=== PATIENT | female | born 1940 | race African-American/Black ===

== ENCOUNTER 2019-08-05 12:25 | Inpatient (IN) | payer OTHER, BC ==
[~2019-08-05] VITALS: Ht 162.6 cm; Wt 97.1 kg
[2019-08-05 12:27] VITALS: BP 135/68
[2019-08-05 12:42] LABS: BE(vivo) 4.2 mmol/L (-2 to +3); HCO3 29.5 mmol/L (22.0-26.0); PCO2 46.9 mmHg (35.0-45.0); PO2 64.3 mmHg (80.0-100.0); pH 7.417 (7.360-7.450); sO2 92.7 % (92.0-98.0)
[2019-08-05 12:42] LABS: ABSOLUTE NEUTROPHILS 2.8 thou/uL (1.4-8.2); BASOPHILS 0.7 % (0.0-2.0); EOSINOPHILS 6.9 % (0.0-3.0); HEMATOCRIT 38.8 % (37.0-47.0); HEMOGLOBIN 12.1 gm/dL (12.0-15.0); LYMPHOCYTES 45.4 % (24.0-44.0); MCH 27.4 pg (26.0-34.0); MCHC 31.3 g/dL (28.0-37.0); MCV 87.6 fL (80.0-100.0); MONOCYTES 8.7 % (1.0-8.0); PLATELET COUNT 201 thou/uL (150-400); POLYS 38.3 % (36.0-66.0); RBC 4.43 mil/uL (4.20-5.00); RDW 14.7 % (10.5-14.5); WBC 7.3 thou/uL (4.0-11.0)
[2019-08-05 12:51] LABS: ANION GAP 6 mmol/L (7-16); BUN 9 mg/dL (7-18); CALCIUM 9.2 mg/dL (8.5-10.1); CHLORIDE 103 mmol/L (98-107); CO2 33 mmol/L (21-32); CREATININE 0.7 mg/dL (0.6-1.0); GLUCOSE 97 mg/dL (74-106); POTASSIUM 3.9 mmol/L (3.5-5.1); SODIUM 142 mmol/L (136-145)
[2019-08-05 12:59] LABS: TROPONIN-I <0.06 ng/mL (<0.06)
--- NOTE | 2019-08-05 13:15 | NUR ---
TALKED WITH PHARMACY WHO INFORMED ME THAT LEVAQUIN AND MAG SULFATE ARE NOT COMPATIBLE IN THE SAME IV TUBING.
[2019-08-05 13:24] VITALS: BP 124/57
[2019-08-05] MEDS ORDERED: NORVASC 2.5 MG2.5 M1 PO (16:30)
[2019-08-05] MEDS ORDERED: ROSUVASTATIN CA10 MG PO (16:31)
[2019-08-05] MEDS ORDERED: FLEXERIL PO (16:31)
[2019-08-05] MEDS ORDERED: ULTRAM50 MG PO (16:32)
[2019-08-05 17:16] VITALS: BP 132/65
[2019-08-05 20:17] VITALS: BP 128/70
[2019-08-06] MEDS ORDERED: SYMBICORT160 MCG/4. INH (00:13)
[2019-08-06] MEDS ORDERED: VENTOLIN HFA 1818 GM INH (00:15)
[2019-08-06] MEDS ORDERED: PROMETHAZINE-C473 ML PO (00:17)
[2019-08-06 01:19] VITALS: BP 130/69
[2019-08-06 04:29] LABS: CALCIUM 9.2 mg/dL (8.5-10.1); CREATININE 0.7 mg/dL (0.6-1.0); MAGNESIUM 2.5 mg/dL (1.8-2.4); POTASSIUM 3.9 mmol/L (3.5-5.1)
[2019-08-06 04:34] LABS: HEMATOCRIT 36.9 % (37.0-47.0); HEMOGLOBIN 11.6 gm/dL (12.0-15.0); MCH 27.3 pg (26.0-34.0); MCHC 31.5 g/dL (28.0-37.0); MCV 86.5 fL (80.0-100.0); RBC 4.26 mil/uL (4.20-5.00); RDW 14.3 % (10.5-14.5); WBC 3.7 thou/uL (4.0-11.0)
[2019-08-06 04:58] VITALS: BP 109/56
--- NOTE | 2019-08-06 07:30 | NUR ---
ASSESSMENTS CHARTED, MEDS GIVEN CHARTED. PATIENT RESTING IN BED DURING SHIFT ON 3 LITERS NASAL CANNULA. UP TO BSC WITH STANDBY ASSIST. REQUESTED COUGH MEDICINE. SPOKE WITH DC MILTON FOR ORDER. PLAN OF CARE IS TO CONTINUE STEROID THERAPY, BREATHING TREATMENTS NEEDED. FALL PRECAUTIONS IN PLACE.
[2019-08-06 08:17] VITALS: BP 131/69
[2019-08-06 09:31] LABS: BE(vivo) 3.9 mmol/L (-2 to +3); PCO2 40.2 mmHg (35.0-45.0); PO2 80.4 mmHg (80.0-100.0); pH 7.461 (7.360-7.450); sO2 96.4 % (92.0-98.0)
[2019-08-06 12:49] VITALS: BP 126/69
--- NOTE | 2019-08-06 15:03 | NUR ---
Nutrition: pt admitted with COPD exacerbation and hyoxia, respiratory distress. Seen due to high risk screen for poor intake and weight loss. Pt is DNR and does not desire intubation. PO intake is fair and has been < 75% of usual recently due to breathing issues. Reports 10# or 4% weight loss within the past 6 months, not significant. Does try to eat smaller more frequent meals, uses ensure daily. PO intake today reported as 50-100%. On steroid. Does not meet malnutrition criteria. Able to order meals. Will add ensure to lunch trays and encourage using as pm snacks. Place as low risk with interventions in place.
--- NOTE | 2019-08-06 15:44 | NUR ---
ASSUMED CARE AT SHIFT CHANGE, ALERT AND ORIENTED X4 AND DENIES ANY DISCOMFORT. VSS AND TACHY WITH ACTIVITIES AT 105-112/MINUTES. SR-ST ON THE MONITOR. AND WILL CONTINUE WITH POC.
--- NOTE | 2019-08-06 16:28 | NUR ---
patient admits with COPD exacerbation. She resides in independent apt on 3rd floor with elevator access. She has walker and cane. Uses cane in apartment and walker in community. Patient has home oxygen via [facility] usu at 2 liters. She questions assistance with housecleaning. Her cousin assists now but in future she may need someone. Gave patient information regarding pvt dty. Therapy evals recommend HH care. Patient prefers [facility] for HH care.
[2019-08-06 16:52] VITALS: BP 129/74
--- NOTE | 2019-08-06 17:22 | NUR ---
FAXED REFERRAL TO [facility] SPOKE WITH MARIANELA IN INTAKE SHE RECEIVED REFERRAL AND CAN ACCEPT AT [facility].
[2019-08-06 20:18] VITALS: BP 121/58
--- NOTE | 2019-08-06 20:34 | NUR ---
Received patient from CCU, transferred to bed safely. A+O. On O2 at 3lpm via nasal cannula. Assisted in ADLs. On heart healthy diet- tolerating well; no nausea, no vomiting and no abdominal pain noted. Continent of bowel and bladder, able to ambulate to the toilet with standby assist and gait belt. With SL at L AC, on IV antibiotics- pt to be placed on blood sugar monitoring. No complaints of pain made. Falls bundle in place. Able to have a bowel movement today. To continue monitoring patient.
--- NOTE | 2019-08-07 07:55 | NUR ---
ASSUMED CARE AROUND 191. AXOX3. REFUSED ENOXAPARIN AND PEPSID SAYING THAT ANJALI TOLD HER TO NOT TAKE THE MEDS. PT WILL SPEAK TO PHYSICIAN ABOUT ANJALI'S WILL. NO S/S ACUTE DISTRESS NOTED OR REPORTED AT THIS TIME. CARE TRANSFERRED TO INCOMING RN AT THIS TIME.
[2019-08-07 08:27] VITALS: BP 121/58
[2019-08-07 08:34] VITALS: BP 131/65
--- NOTE | 2019-08-07 20:20 | NUR ---
PT A&OX4, VSS, DENIES PAIN. PATIENT C/O OF ANXIETY, ORDERS GIVEN AND PT GIVEN XANAX. PT HAS CONGESTED COUGH, MUCUS YELLOW, CHEST SOUNDS DIM. NO SIGNS OF DISTRESS. WILL CONTINUE TO MONITOR.
[2019-08-07 21:05] VITALS: BP 122/68
--- NOTE | 2019-08-08 07:15 | NUR ---
ASSUMED CARE AROUND 1914. AXOX4. PERSISTENT COUGHING. MEDS ADMIN PER MD ORDER. NEW IV PUT IN BY IV TEAM TO [facility]. NO S/S ACUTE DISTRESS NOTED OR REPORTED AT THIS TIME. CARE TRANSFERRED TO INCOMING RN AT THIS TIME.
[2019-08-08 08:01] VITALS: BP 121/75
[2019-08-08 14:47] VITALS: BP 114/61
--- NOTE | 2019-08-08 15:29 | NUR ---
Received awake on bed. Due medications given as prescribed, able to swallow meds w/o difficulty. On O2 at 2lpm via nasal cannula. On heart healthy diet- tolerating well; no nausea, no vomiting and no abdominal pain noted. On blood sugar monitoring- on IV steroids. Assisted in ADLs. Able to ambulate using a can, on standby assist; able to sit out on chair. Vital signs stable. PRN cough medications given as prescribed. Falls bundle in place, checked frequently. Continent of B/B, makes need known. Pt seen by Dr Berry this morning- possible discharge tomorrow. To continue monitoring patient.
[2019-08-08 16:21] VITALS: BP 121/58
--- NOTE | 2019-08-08 16:21 | NUR ---
CARE TEAM INDICATED THAT PT WILL LIKELY BE MEDICALLY STABLE TO DC HOME OVER THE WEEKEND. PT HAD BEEN ACCEPTED BY [facility] FOR HH SERVICES UPON [place]. FAX FINAL ORDERS TO . PT HAS ALL NEEDED DME UPON DC. NO OTHER CM INTERVENTION INDICATED. CASE CLOSED.
[2019-08-08 19:22] VITALS: BP 118/68
--- NOTE | 2019-08-09 05:39 | NUR ---
Assessments completed. pt a&ox4. standby assist to the bathroom. denies pain, n/v. pt is looking forward to being d/c today. pt stated to give her a 2hr window so she can notify her ride before d/c. on 2l02 and sats are wnl. no s/s of distress. occasional non productive cough. will cont to monitor
[2019-08-09] MEDS ORDERED: MUCINEX600 MG PO (12:29)
[2019-08-09] MEDS ORDERED: RAYOS5 MG PO (12:29)
[2019-08-09] MEDS ORDERED: LEVAQUIN 500 M500 M1 PO (12:29)
[2019-08-09] MEDS ORDERED: ALBUTEROL2.5 MG/0.5 INH (12:29)
[2019-08-09] MEDS ORDERED: ALPRAZOLAM 0.50.5 M1 PO (12:29)
[2019-08-09 12:56] VITALS: BP 121/58
--- NOTE | 2019-08-09 16:58 | NUR ---
Patient Discharged back home at approximately 1515 this afternoon. Vital signs stable; O2 at 2 Liters per nc. Patient verbalized an understanding to all Discharge Instructions before signing paperwork. Patient took Oxygen tank with her to get home (she argued about keeping it with Charge Nurse). Patient called at 1700 to report that she would return the tank this evening. POC followed.
--- NOTE | 2019-08-13 16:45 | NUR ---
PT DISCHARGED Sunday08/09/19 DC ORDERS/SUMMARY WERE NOT RECEIVED WAS NOTIFEID BY INTAKE AT [facility] THAT PT CALLED WANTING TO KNOW WHEN THEY WOULD START HH. DP FAXED DC ORDERS/SUMMARY SPOKE WITH RICHARD IN INTAKE SHE RECEIVED DC ORDERS AND A ADDENDUM ON DC SUMMARY STATES HH VISITS TO START 08/14 OR 08/15, CASE CLOSED.
--- NOTE | 2019-08-14 11:21 | EKG ---
[facility] [place] [address] ELECTROCARDIOGRAM REPORT Name: ISAKFABIO Room #: 462-P [facility] IN M.R.#: [id number] Admission: 08/05/19 Attend Phys: Ángel Mock MD Discharge: 08/09/19 Date of : 38 Report #: [id number] THIS REPORT FOR: cc: FAM - Family physician unknown FAM - Family physician unknown Bony Arevalo MD ~ THIS REPORT FOR: //name// [facility] ED Test Date: 2019-08-05 Test Time: 12:42:24 Pat Name: FABIO PARISI Department: Room: [facility] Gender: F Clinical Data Programmer: MICHAEL : 1940 Requested By: Tripp Linda Order Number: [id number] MD: Bony Arevalo Measurements Intervals [place] Rate: 99 P: 65 UT: 134 QRS: 11 QRSD: 88 T: 54 QT: 367 QTc: 471 Interpretive Statements Sinus rhythm Left atrial enlargement Borderline T abnormalities, anterior leads No previous ECG available for comparison Electronically Signed On 08-06-2019 8:39:59 EYE PHYSICIAN by Bony Arevalo [email or web address] <ELECTRONICALLY SIGNED> By: Bony Arevalo MD 08/06/19 0839 [id number] Bony Arevalo MD /EPI
== END 2019-08-09 15:55 | disposition home health service (06) | DRG 193 ==
LOC: ER 12:25 → 2N 16:00 → EROBS 16:00 → 2N 17:16 → ENTRNSPT 08-06 15:51 → 4W 08-06 16:36
PROVIDERS: Emergency Medicine; ADMIT Internal Medicine
DX: J18.9 Pneumonia, unspecified organism (principal); J96.21 Acute and chronic respiratory failure with hypoxia; J96.22 Acute and chronic respiratory failure with hypercapnia; J44.1 Chronic obstructive pulmonary disease with (acute) exacerbation; J44.0 Chronic obstructive pulmonary disease with (acute) lower respiratory infection; J45.901 Unspecified asthma with (acute) exacerbation; I10 Essential (primary) hypertension; M19.90 Unspecified osteoarthritis, unspecified site; Z60.2 Problems related to living alone; R63.4 Abnormal weight loss; K59.00 Constipation, unspecified; G47.00 Insomnia, unspecified; N39.41 Urge incontinence; D72.1 Eosinophilia; J22 Unspecified acute lower respiratory infection; M62.838 Other muscle spasm; Z66 Do not resuscitate; J20.9 Acute bronchitis, unspecified; Z88.6 Allergy status to analgesic agent; Z88.0 Allergy status to penicillin; Z87.891 Personal history of nicotine dependence; Z68.36 Body mass index [BMI] 36.0-36.9, adult; Z79.899 Other long term (current) drug therapy
CPT/HCPCS: 10047; 10081